=== PATIENT | female | born 1955 | race Caucasian/White ===

== ENCOUNTER 2016-11-25 12:39 | Emergency (ER) | payer MEDICAID ==
[~2016-11-25] VITALS: Ht 165.1 cm; Wt 70.5 kg
[2016-11-25 12:41] VITALS: Ht 165.1 cm; Wt 70.5 kg
[2016-11-25] MEDS ORDERED: HYDR-906 PO (13:59)
[2016-11-25] MEDS ORDERED: ACET500C5 PO (13:59)
[2016-11-25] MEDS ORDERED: HYDROCODONE/APAP (5/325) TAB PO ONE (14:00)
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
== END 2016-11-25 14:24 | disposition home or self-care (01) ==
LOC: FTE 12:39
DX: R51 Headache (principal); M54.2 Cervicalgia; M54.9 Dorsalgia, unspecified
CPT/HCPCS: Z7502; Z7610; 99283

== ENCOUNTER 2016-12-11 04:45 | Emergency (ER) | payer MEDICAID ==
[~2016-12-11] VITALS: Ht 162.6 cm; Wt 68.2 kg
[~2016-12-11 04:45] MED LIST: ACET500C5 PO; HYDR-906 PO
[2016-12-11 04:52] VITALS: Ht 162.6 cm; Wt 68.2 kg
[2016-12-11] MEDS ORDERED: ONDANSETRON 4 MG INJ IV STA (04:57)
[2016-12-11] MEDS ORDERED: HYDROmorphONE 1 MG/ML SYG IV STA (04:57)
[2016-12-11 05:00] VITALS: BP 148/94; PULSE 97; RESP 22; TEMP 98.7
[2016-12-11] MEDS ORDERED: LORAZEPAM 2 MG INJ IV ONE (05:00)
--- NOTE | 2016-12-11 05:23 | RADRPT ---
PROCEDURE: Chest. CLINICAL INDICATION: Chest pain. TECHNIQUE: Single frontal view of the chest was obtained. COMPARISON: None. FINDINGS: The cardiac silhouette is enlarged. The aortic arch is calcified. There is mild pulmonary venous c ongestion. There is no focal consolidation or pleural effusion. There is no pneumothorax. IMPRESSION: Cardiomegaly and mild pulmonary venous congestion. Aortic atherosclerosis. .Lee Rodas MD, MD Date Time Electronically viewed and signed by .Lee Rodas MD, on 12/11/2016 05:22 .T/
[2016-12-11 05:42] LABS: BASOPHIL # 0.1 10^3/ul (0.0-0.1); BASOPHILS % 0.8 % (0.0-2.0); EOSINOPHILS # 0.3 10^3/ul (0.0-0.5); EOSINOPHILS % 4.7 % (0.0-7.0); HEMATOCRIT 25.8 % (37.0-47.0); HEMOGLOBIN 8.2 g/dl (12.0-16.0); LYMPHOCYTES # 2.7 10^3/ul (0.8-2.9); LYMPHOCYTES % 45.1 % (15.0-51.0); MEAN CORPUSCULAR HEMOGLOBIN 30.8 pg (29.0-33.0); MEAN CORPUSCULAR HGB CONC 31.8 g/dl (32.0-37.0); MEAN PLATELET VOLUME 8.6 fl (7.4-10.4); MONOCYTE # 0.8 10^3/ul (0.3-0.9); MONOCYTES % 12.9 % (0.0-11.0); PLATELET COUNT 379 10^3/UL (140-415); RED BLOOD COUNT 2.66 10^6/ul (4.20-5.40); RED CELL DISTRIBUTION WIDTH 14.9 % (11.5-14.5)
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
[2016-12-11 06:10] LABS: ANION GAP 12 (8-16); BLOOD UREA NITROGEN 12 mg/dl (7-20); CALCIUM 8.8 mg/dl (8.4-10.2); CARBON DIOXIDE 24 mmol/L (21-31); CHLORIDE 112 mmol/L (97-110); CREATININE 0.71 mg/dl (0.44-1.00); GLUCOSE 94 mg/dl (70-220); POTASSIUM 3.2 mmol/L (3.5-5.1); SODIUM 145 mmol/L (135-144)
[2016-12-11 06:25] LABS: TROPONIN-I < 0.012 ng/ml (0.00-0.12)
== END 2016-12-11 07:30 | disposition home or self-care (01) ==
LOC: E/R 04:45
DX: G89.29 Other chronic pain (principal); J45.909 Unspecified asthma, uncomplicated; Z76.5 Malingerer [conscious simulation]
CPT/HCPCS: 36415; 71010; 80048; 84484; 85025; 93005; 96374; 96375; J1170; J2060; J2405; Z7502

== ENCOUNTER 2017-01-04 03:20 | Inpatient (IN) | payer MEDICAID ==
[~2017-01-04] VITALS: Ht 167.6 cm; Wt 73.7 kg
[2017-01-04] MEDS ORDERED: ONDANSETRON (ODT) 4 MG TAB ODT STA (04:00)
[2017-01-04] MEDS ORDERED: traMADol 50 MG TAB PO ONE (04:00)
[2017-01-04] MEDS ORDERED: ONDANSETRON 4 MG INJ IM STA (04:34)
[2017-01-04 04:46] LABS: BASOPHIL # 0.1 10^3/ul (0.0-0.1); BASOPHILS % 0.9 % (0.0-2.0); EOSINOPHILS % 0.5 % (0.0-7.0); HEMATOCRIT 25.3 % (37.0-47.0); HEMOGLOBIN 7.9 g/dl (12.0-16.0); LYMPHOCYTES # 2.1 10^3/ul (0.8-2.9); LYMPHOCYTES % 32.2 % (15.0-51.0); MEAN CORPUSCULAR HEMOGLOBIN 27.5 pg (29.0-33.0); MEAN CORPUSCULAR HGB CONC 31.2 g/dl (32.0-37.0); MEAN CORPUSCULAR VOLUME 88.2 fl (82.0-101.0); MEAN PLATELET VOLUME 8.5 fl (7.4-10.4); MONOCYTE # 0.5 10^3/ul (0.3-0.9); MONOCYTES % 7.6 % (0.0-11.0); NEUTROPHIL # 3.8 10^3/ul (1.6-7.5); NEUTROPHILS % 58.5 % (39.0-77.0); PLATELET COUNT 564 10^3/UL (140-415); RED BLOOD COUNT 2.87 10^6/ul (4.20-5.40); RED CELL DISTRIBUTION WIDTH 15.8 % (11.5-14.5); WHITE BLOOD COUNT 6.5 10^3/ul (4.8-10.8)
[2017-01-04] MEDS ORDERED: METOCLOPRAMIDE 10 MG INJ IV ONE (05:30)
--- NOTE | 2017-01-04 05:36 | RADRPT ---
PROCEDURE: XR Abdomen. CLINICAL INDICATION: Abdominal Pain TECHNIQUE: Portable AP supine abdomen radiographs COMPARISON: None. FINDINGS: There is suggestion of a large hiatal hernia with adjacent atelectasis. The bowel gas pattern is nor mal. There is no evidence of obstruction. There are no abnormal calcifications overlying the urinary tracts. The liver appears enlarged. There are right buttock calcified granulomas. The osseous structures are normal.. IMPRESSION: Probable large hiatal hernia. No evidence of obstruction. Enlarged liver. Physician Toño Date Time Electronically viewed and signed by Physician Toño on 01/04/2017 05:36 LUIS MANUEL/
[2017-01-04 05:48] LABS: ALBUMIN 3.8 g/dl (3.3-4.9); ALBUMIN/GLOBULIN RATIO 1.22; CALCIUM 8.7 mg/dl (8.4-10.2); CREATININE 0.7 mg/dl (0.44-1.00); POTASSIUM 4.3 mmol/L (3.5-5.1); TOTAL PROTEIN 6.9 g/dl (6.1-8.1)
[2017-01-04] MEDS ORDERED: LORAZEPAM 2 MG INJ IV ONE ×2 (06:00→08:30)
[2017-01-04] MEDS ORDERED: DIPHENHYDRAMINE 50 MG INJ ONE (06:06)
[2017-01-04] MEDS ORDERED: DIPHENHYDRAMINE 50 MG INJ IM ONE (06:30)
[2017-01-04 07:00] VITALS: TEMP 98.8
--- NOTE | 2017-01-04 07:27 | ERA ---
ER Documentation Chief Complaint Date/Time DATE: 01/04/17 TIME: 07:17 Chief Complaint chronic body pain, seen here 1 month ago, run out of [employer] HPI 61-year-old female comes in via ambulance along with her goddaughter for pain all over her body as well as 3 episodes of vomiting blood today. She admits to drinking some liquor this morning but has not had any alcohol since. She is feeling somewhat lightheaded as well. States that she ran out of [employer]. Her goddaughter describes that she had a months worth but took it all in 2 weeks has been out for a few days now. Patient states that she was taking it for pain of her whole body previously. Not a whole body pain has returned. He denies any lower GI bleeding or dark stools.Does state that she has a history of ulcers.Denies that she has specific abdominal pain worse than anything else. When asked for most of her pain and she says in her lower back. ROS All systems reviewed and are negative except as per history of present illness , however patient is unreliable I believe. Medications Home Meds No Active Prescriptions or Reported Meds Allergies Allergies: Coded Allergies: ciprofloxacin (Unverified Allergy, Severe, EYES SWELLING; ITCHING, 12/11/16 ) gabapentin (Unverified Allergy, Unknown, STROKE LIKE, 12/11/16) PMhx/Soc History of Surgery: Yes (HYSTERECTOMY) Anesthesia Reaction: No Hx Neurological Disorder: Yes (TIA 2016) Hx Respiratory Disorders: Yes (ASTHMA) Hx Cardiac Disorders: Yes (MURMUR) Hx Psychiatric Problems: No Hx Miscellaneous Medical Probl: No Hx Alcohol Use: Yes (WINE 3 X/WK) Hx Substance Use: No Hx Tobacco Use: No Smoking Status: Never smoker Physical Exam Vitals Vital Signs Date Time Temp Pulse Resp B/P Pulse Ox O2 Delivery O2 Flow Rate FiO2 01/04/17 05:44 89 20 135/84 98 Room Air 01/04/17 03:34 98.3 80 20 128/84 98 Physical Exam Const: [] Mild distress, patient whining and crying. Head: Atraumatic Eyes: Normal Conjunctiva ENT: Normal External Ears, Nose and Mouth. Neck: Full range of motion..~ No meningismus. Resp: Clear to auscultation bilaterally Cardio: Regular rate and rhythm, no murmurs Abd: Soft, No apparent tenderness, non distended. Normal bowel sounds Skin: No petechiae or rashes Back: No midline or flank tenderness Ext: No cyanosis, or edema Neur: Awake and alert and oriented 3, poor behavior, however moving all 4 extremities, able to perform finger to nose exam. Cranial nerves II through XII grossly intact. Psych: Agitated and unhappy. Result Diagram: 01/04/17 0425 01/04/17 0425 Results 24 hrs Laboratory Tests Test 01/04/17 04:25 White Blood Count 6.510^3/ul Red Blood Count 2.8710^6/ul Hemoglobin 7.9g/dl Hematocrit 25.3% Mean Corpuscular Volume 88.2fl Mean Corpuscular Hemoglobin 27.5pg Mean Corpuscular Hemoglobin Concent 31.2g/dl Red Cell Distribution Width 15.8% Platelet Count 74874^3/UL Mean Platelet Volume 8.5fl Neutrophils % 58.5% Lymphocytes % 32.2% Monocytes % 7.6% Eosinophils % 0.5% Basophils % 0.9% Nucleated Red Blood Cells % 0.0/100WBC Neutrophils # 3.810^3/ul Lymphocytes # 2.110^3/ul Monocytes # 0.510^3/ul Eosinophils # 0.010^3/ul Basophils # 0.110^3/ul Nucleated Red Blood Cells # 0.010^3/ul Sodium Level 141mmol/L Potassium Level 4.3mmol/L Chloride Level 107mmol/L Carbon Dioxide Level 22mmol/L Anion Gap 16 Blood Urea Nitrogen 11mg/dl Creatinine 0.70mg/dl Glucose Level 123mg/dl Calcium Level 8.7mg/dl Total Bilirubin 0.0mg/dl Direct Bilirubin 0.00mg/dl Indirect Bilirubin 0.0mg/dl Aspartate Amino Transf (AST/SGOT) 22IU/L Alanine Aminotransferase (ALT/SGPT) 26IU/L Alkaline Phosphatase 91IU/L Total Protein 6.9g/dl Albumin 3.8g/dl Globulin 3.10g/dl Albumin/Globulin Ratio 1.22 Lipase 83U/L Ethyl Alcohol Level 86.0mg/dl Current Medications Medications (Trade) Dose Ordered Sig/Jamshid Route PRN Reason Start Time Stop Time Status Last Admin Dose Admin Ondansetron HCl (Zofran Odt) 4 mg ONCE STAT ODT 01/04/17 04:00 01/04/17 04:35 DC Tramadol HCl (Ultram) 50 mg ONCE ONCE PO 01/04/17 04:00 01/04/17 04:01 DC 01/04/17 04:00 Ondansetron HCl (Zofran Inj) 4 mg ONCE STAT IM 01/04/17 04:34 01/04/17 04:35 DC 01/04/17 05:15 Clonidine (Catapres) 0.1 mg ONCE ONCE PO 01/04/17 05:30 01/04/17 05:32 DC 01/04/17 05:44 Metoclopramide HCl (Reglan) 10 mg ONCE ONCE IV 01/04/17 05:30 01/04/17 05:31 DC 01/04/17 05:39 Lorazepam (Ativan) 1 mg ONCE ONCE IV 01/04/17 06:00 01/04/17 06:01 DC 01/04/17 05:50 Diphenhydramine HCl (Benadryl) 25 mg ONCE ONCE IM 01/04/17 06:30 01/04/17 06:31 DC 01/04/17 06:10 Diphenhydramine HCl 50 mg 50 mg STK-MED ONCE .ROUTE 01/04/17 06:06 01/04/17 06:07 DC Sodium Chloride (NS) 1,000 ml @ 1,000 mls/hr Q1H ONCE IV 01/04/17 07:30 01/04/17 08:29 Famotidine (Pepcid Iv) 20 mg ONCE ONCE IV 01/04/17 07:30 01/04/17 07:31 Procedures/MDM Intoxicated patient with possible necrotic withdrawals as well as reported upper GI bleed. Hemoglobin of 7.9 is low however her previous hemoglobin was 8.2. Was given Pepcid IV she was unable tolerate p.o. Was also given 4 mg of Zofran and 2 mg of Reglan to help control her vomiting.She does not have any apparent abdominal tenderness and did vomit in the emergency room with no evidence of blood. Patient is behaving badly. She was given clonidine to help with the withdrawals as well as a tramadol, liter of normal saline and 1 mg of Ativan for allergic behavior. She had a cutaneous allergic reaction and was given 25 mg of IM Benadryl. Ordered a CAT scan to look for any abnormalities that would suggest why she was vomiting as possible esophageal injury. She was given Haldol so that she could start moving and tolerate the CAT scan. She is being admitted to panel hospitalist. CT scan will be followed by oncoming physician Departure Diagnosis: Primary Impression: Upper GI bleed Additional Impressions: Alcohol intoxication Vomiting Condition: Serious VALERIOSHAMALISA DO Jan 04, 2017 07:27
[2017-01-04] MEDS ORDERED: FAMOTIDINE 20 MG INJ IV ONE (07:30)
[2017-01-04] MEDS ORDERED: ACETAMINOPHEN 325 MG TAB PO PRN (07:30)
[2017-01-04] MEDS ORDERED: HALOPERIDOL 5 MG INJ IM ONE (07:30)
[2017-01-04] MEDS ORDERED: SOD CHLORIDE 0.9% 1,000 ML IV ONE (07:30)
[2017-01-04] MEDS ORDERED: ONDANSETRON 4 MG INJ IV PRN (07:30)
[2017-01-04] MEDS ORDERED: NACL 0.9% 3 ML SYG IV SCH (09:00)
[2017-01-04] MEDS ORDERED: HYDROCODONE/APAP (5/325) TAB PO PRN (09:00)
[2017-01-04] MEDS ORDERED: MULTIVITAMINS 10 ML, THIAMINE 100 MG, FOLIC ACID 1 MG, MAGNESIUM SULFATE 2 GM in SOD CH... IV ONE (09:00)
--- NOTE | 2017-01-04 09:16 | HP ---
Date/Time of Note Date/Time of Note DATE: 01/04/17 TIME: 09:04 Assessment/Plan VTE Prophylaxis VTE Prophylaxis Intervention: SCD's Lines/Catheters IV Catheter Type (from Nrsg): Peripheral IV Assessment/Plan Problems: (1) Anemia Status: Chronic Comment: Her blood counts are relatively similar to a few weeks ago when she was in the emergency room for other purposes. Will observe her carefully and check her iron levels. In addition GI has been consulted. Please note that her chief complaint of hematemesis was reported 1 not a witnessed one in the nursing notes do not indicate hematemesis. Will check a stool for occult blood Qualifiers: Anemia type: unspecified type Qualified Code: D64.9 - Anemia, unspecified type (2) Altered mental status, unspecified Status: Acute Comment: As of now I cannot do history because she has been given Ativan Benadryl and Haldol. Regardless she had some alterations in mental status but she also came in intoxicated. We will have to watch for withdrawal carefully in this young lady. Ultimately she will need further evaluation as well may need scanning if she can be gotten to the point where she will sit still for the scanner, and the scanners are operational Qualifiers: Altered mental status type: delirium Qualified Code: R41.0 - Delirium (3) Chronic pain syndrome Status: Chronic Comment: We will use methadone here. Reading between the lines and the notes it looks like at some point she has had OxyContin. I am less in favor that in the setting. (4) Alcoholism /alcohol abuse Status: Chronic Comment: Banana bag and watch for withdrawal. (5) Hepatomegaly Status: Chronic Comment: Noted. She can have formalized evaluation later. Has routine him also to check hepatitis serologies (6) Alcohol intoxication Status: Acute Comment: Noted. Supportive care Qualifiers: Complication of substance-induced condition: with delirium Qualified Code: F10.921 - Alcohol intoxication with delirium (7) Vomiting Status: Acute Comment: Whether or not she has had hematemesis will determine. GI is coming on board to consult. Qualifiers: Vomiting type: unspecified Vomiting Intractability: non-intractable Nausea presence: with nausea Qualified Code: R11.2 - Non-intractable vomiting with nausea, unspecified vomiting type HPI/ROS Admit Date/Time Admit Date/Time January 04, 2017 Hx of Present Illness 61-year-old single female being admitted from the emergency room. According to the information that is obtainable she had recently moved from [facility] to [facility] in the last 6 months. She has not established with a regular doctor. She has been coming to the emergency room with frequent complaints about chronic pain. She presented this time with reported hematemesis. Please note the nurses notes in the computer record from today indicate that she did have emesis several times but with no blood or coffee grounds. She was intoxicated with a blood alcohol level of 86. She also has opiates on board. Because the patient was agitated and yelling she was given Ativan and Benadryl and Haldol. At that time was when I came to see the patient she is so sedated that there is no way to get a medical history. Attempts to get CT scans ordered from the emergency room were unsuccessful and now all of the scanners are down "indefinitely" ROS Subjective hx not possible: pt non-verbal PMH/Family/Social Past Medical History 1) alcoholism 2) chronic pain syndrome 3) chronic opioid usage 4) hepatomegaly 5 ) reported history of postherpetic neuralgia 6) reported history of cardiac murmur type unknown 7) reported history of TIA in 2016??? 8) possible history of asthma Past Surgical History 1) RAJEEV Family History Significant Family History: no pertinent family hx Social History Alcohol Use: heavy Smoking Status: Never smoker Drug Use: other (Prescription opiates) Exam/Review of Systems Vital Signs Vitals Vital Signs Date Time Temp Pulse Resp B/P Pulse Ox O2 Delivery O2 Flow Rate FiO2 01/04/17 09:02 110 27 137/80 99 Room Air 01/04/17 07:00 98.8 Exam Exam Older female in 4 point restraints sedated occasionally starts thrashing around will not give meaningful history Constitutional: non-verbal Psych: other (Unable to determine) Head: atraumatic, normocephalic Eyes: EOMI, PERRL, nl conjunctiva, nl lids, nl sclera ENMT: mucosa pink and moist, nl external ears & nose, nl nasal mucosa & septum , other (Dentition in fair repair) Neck: non-tender, other (No nodes no thyromegaly), supple Respiratory: clear to auscultation, normal air movement Cardiovascular: murmurs/extra sounds (Left upper sternal border murmur), nl pulses, other (PMI is laterally displaced), regular rate and rhythm Gastrointestinal: nl liver, spleen, non-tender, soft Genitourinary - Female: nl adnexae, nl external genitalia Musculoskeletal: other (Patient is thrashing around I am unable to determine however on her left thigh appears that she has had some type of muscular disruption of the posterior aspect) Extremities: normal pulses Neurological: confused (Post IV sedative), other (Moves all extremities) Labs Result Diagram: 01/04/1742401/04/17424 Medications Medications Current Medications Multivitamins/ Thiamine HCl/ Folic Acid/ Magnesium Sulfate/ Sodium Chloride ( Mvi Adult/ Vitamin B1/Folic Acid/Magnesium Sulfate/NS) 1,015.2 ml @ 500 mls/ hr Q2H2M ONCE IV ; Start 01/04/17 at 09:00; Stop 01/04/17 at 11:01 LISA PATRICK MD Jan 04, 2017 09:16
[2017-01-04 09:30] VITALS: Ht 167.6 cm; Wt 73.7 kg
[2017-01-04 09:53] LABS: IRON 14 ug/dl (35-150)
[2017-01-04 10:02] LABS: TOTAL IRON BINDING CAPACITY 393 ug/dl (241-421)
[2017-01-04 10:21] LABS: THYROID STIMULATING HORMONE 6.95 MIU/L (0.465-4.680)
[2017-01-04 10:25] LABS: FERRITIN 6.1 ng/ml (11.1-264.0)
[2017-01-04 10:36] VITALS: BP 147/76; RESP 19
[2017-01-04] MEDS: FAMOTIDINE 20 MG INJ IV SCH ×2 (12:17→21:13)
[2017-01-04 15:47] VITALS: BP 114/64; RESP 18
[2017-01-04 19:39] VITALS: BP 136/78; RESP 18
[2017-01-04] MEDS: ONDANSETRON 4 MG INJ IV PRN (23:49)
[2017-01-05] VITALS (13 sets, daily range): BP systolic 117–158; BP diastolic 62–83; PULSE 84–94; RESP 16–27
--- NOTE | 2017-01-05 01:08 | RADRPT ---
PROCEDURE: CT Abdomen and Pelvis without contrast. CLINICAL INDICATION: Hematemesis TECHNIQUE: CT scan of the abdomen and pelvis without contrast was performed on a multidetector hig h-resolution CT scanner. The patient was scanned without intravenous contrast. Coronal and sagittal reformatted images were obtained from the axial source images. Images were reviewed on a high-resol [employer] PACS workstation. The total exam CTDI equals 13.56 mGy and the total exam DLP equals 754.9 mGy -cm. One or more the following dose reduction techniques were utilized: Automated exposure control, adjus tment of the mA and / or kV according to patient's size, or use of iterative reconstruction techniqu e. COMPARISON: Abdominal radiograph of 01/04/2017 FINDINGS: Minimal linear atelectasis/fibrosis at lung bases. No pneumoperitoneum is seen. The length of the li rishi equals 18.6 cm consistent with hepatomegaly. No abnormality seen in the gallbladder. Coronary ar [place] calcification. Moderate hiatal hernia. No abnormality seen in the spleen, pancreas, adrenals or kidneys. Tortuosity of distal thoracic aorta. No abdominal aortic aneurysm is seen. Small umbilical hernia containing fat only. No biliary dilatation is seen. No ascites is seen. The patient appears to be status post hysterectomy. No abnormality seen in the bladder. Dystrophic calcifications in sub cutaneous fat bilateral gluteal regions. Diverticula in the sigmoid colon. There is no specific evid ence of acute diverticulitis seen. There is no evidence of acute appendicitis. No significantly dila estela small bowel loops are seen. No enlarged lymph nodes are seen in the abdomen or pelvis. Degenerat sujit changes in thoracolumbar spine. Appearance of fusion apparent T9-T11 vertebral bodies. Compression fracture apparent T8 vertebral body with a large Schmorl's node superiorly. IMPRESSION: Hepatomegaly. Moderate hiatal hernia. The hiatal hernia and stomach are not distended. Coronary maría ry calcification. Please see above. RPTAT: HJES .Roberto Gan MD, Date Time Electronically viewed and signed by .Roberto Gan MD, on 01/05/2017 01:08 .S/
[2017-01-05] MEDS ORDERED: PRAM0.2539 PO (02:21)
[2017-01-05] MEDS: ALBUTEROL/IPRATROPIUM (NEB) 3 ML AMP HHN PRN ×4 (02:30→21:18)
[2017-01-05 06:06] LABS: BASOPHILS % 0.5 % (0.0-2.0); EOSINOPHILS # 0.1 10^3/ul (0.0-0.5); EOSINOPHILS % 1.4 % (0.0-7.0); HEMATOCRIT 23.4 % (37.0-47.0); HEMOGLOBIN 7.2 g/dl (12.0-16.0); LYMPHOCYTES # 2.1 10^3/ul (0.8-2.9); LYMPHOCYTES % 35.7 % (15.0-51.0); MEAN CORPUSCULAR HEMOGLOBIN 28.6 pg (29.0-33.0); MEAN CORPUSCULAR HGB CONC 30.8 g/dl (32.0-37.0); MEAN CORPUSCULAR VOLUME 92.9 fl (82.0-101.0); MEAN PLATELET VOLUME 8.6 fl (7.4-10.4); MONOCYTE # 0.7 10^3/ul (0.3-0.9); MONOCYTES % 11.6 % (0.0-11.0); NEUTROPHILS % 50.5 % (39.0-77.0); PLATELET COUNT 441 10^3/UL (140-415); RED BLOOD COUNT 2.52 10^6/ul (4.20-5.40); RED CELL DISTRIBUTION WIDTH 15.9 % (11.5-14.5); WHITE BLOOD COUNT 5.9 10^3/ul (4.8-10.8)
[2017-01-05 06:22] LABS: ALBUMIN 2.8 g/dl (3.3-4.9); ALBUMIN/GLOBULIN RATIO 1.07; BILIRUBIN,INDIRECT 0.2 mg/dl (0-1.1); BILIRUBIN,TOTAL 0.2 mg/dl (0.2-1.3); CALCIUM 8.3 mg/dl (8.4-10.2); CREATININE 0.68 mg/dl (0.44-1.00); POTASSIUM 3.7 mmol/L (3.5-5.1); TOTAL PROTEIN 5.4 g/dl (6.1-8.1)
[2017-01-05] MEDS: HYDROCODONE/APAP (5/325) TAB PO PRN ×3 (07:01→19:48)
[2017-01-05] MEDS: FAMOTIDINE 20 MG INJ IV SCH (08:15)
[2017-01-05] MEDS: METHADONE 5 MG TAB PO SCH ×2 (08:15→23:08)
[2017-01-05] MEDS: PRAMIPEXOLE 0.25 MG TAB PO SCH ×2 (08:15→21:33)
[2017-01-05] MEDS: SOD FERRIC GLUC COMPLX 125 MG in SOD CHLORIDE 0.9% 100 ML IVPB SCH (08:26)
[2017-01-05] MEDS: MULTIVITAMINS 10 ML, THIAMINE 100 MG, FOLIC ACID 1 MG in SOD CHLORIDE 0.9% 1,000 ML IVPB SCH (08:59)
[2017-01-05 09:13] LABS: ADD UMIC YES; UR ASCORBIC ACID 40 mg/dL (NEGATIVE); UR BILIRUBIN (Dip) NEGATIVE (NEGATIVE); UR BLOOD (Dip) NEGATIVE (NEGATIVE); UR CLARITY CLEAR (CLEAR); UR COLOR YELLOW (YELLOW); UR GLUCOSE (Dip) NEGATIVE (NEGATIVE); UR KETONES (Dip) TRACE mg/dL (NEGATIVE); UR LEUKOCYTE ESTERASE (Dip) 1+ Leu/ul (NEGATIVE); UR NITRITE (Dip) NEGATIVE (NEGATIVE); UR NONSQUAMOUS EPITHELIAL CELL 2 /HPF (NONE SEEN); UR RBC 1 /HPF (0-5); UR SPECIFIC GRAVITY (Dip) 1.024 (1.003-1.030); UR SQUAMOUS EPITHELIAL CELL FEW /HPF (FEW); UR TOTAL PROTEIN (Dip) NEGATIVE (NEGATIVE); UR UROBILINOGEN (Dip) 2+ mg/dL (NEGATIVE)
[2017-01-05 09:57] LABS: BARBITURATES Negative (NEGATIVE); BENZODIAZEPINES Negative (NEGATIVE); CANNABINOIDS Negative (NEGATIVE); COCAINE Negative (NEGATIVE); OPIATES Positive (NEGATIVE)
[2017-01-05] MEDS: LORAZEPAM 2 MG INJ IV PRN (11:46)
[2017-01-05] MEDS: GUAIFENESIN/CODEINE 5ML CUP PO PRN ×2 (12:45→21:32)
--- NOTE | 2017-01-05 15:03 | RADRPT ---
PROCEDURE: XR Chest. CLINICAL INDICATION: Fracture TECHNIQUE: AP view of the chest was performed. COMPARISON: 12/11/2016 FINDINGS: The lungs are clear. The lung volumes are normal. The heart size is normal. Chronic left sided rib fractures are present. There is hyperdensity within the right shoulder joint, which may be represen tative of calcifications. Aortic atherosclerosis is present. IMPRESSION: 1. No radiographic evidence for acute cardiopulmonary disease. 2. Old left-sided rib fractures are present. 3. Hyperdensity within the left shoulder may represent calcification, was present on prior exam of [facility] 2016. Dedicated radiographs of the shoulder may be performed for further evaluation. 4. Aortic atherosclerosis is present. RPTAT: QQ .Ruma Zepeda MD, Date Time Electronically viewed and signed by .Ruma Zepeda MD, on 01/05/2017 15:03 .M/
--- NOTE | 2017-01-05 15:27 | PN ---
Date/Time of Note Date/Time of Note DATE: 01/05/17 TIME: 15:26 Assessment/Plan VTE Prophylaxis VTE Prophylaxis Intervention: SCD's Lines/Catheters IV Catheter Type (from Nrs): Peripheral IV Urinary Cath still in place: No Assessment/Plan Chief Complaint/Hosp Course Assessment and plan 1. Alcohol intoxication has been placed on banana bag Ativan as needed, Librium schedule 2. Acute on chronic GI bleed Secondary to history of alcoholism versus NSAID intake GI has been consulted, plan for upper endoscopy today Continue PPI 3. Right shoulder pain Obtain x-ray of the right shoulder, pain meds 4. Chronic pain syndrome Continue methadone 5. Anemia, secondary to GI bleed Continue to monitor, transfuse his hemoglobin is less than 7.0 Placed the patient on ferrous sulfate Problems: Subjective 24 Hr Interval Summary Free Text/Dictation She continues to complain of having generalized body ache, right shoulder pain and abdominal pain N.p.o. secondary to GI bleed and upcoming procedure Exam/Review of Systems Vital Signs Vitals Vital Signs Date Time Temp Pulse Resp B/P Pulse Ox O2 Delivery O2 Flow Rate FiO2 01/05/17 14:25 99.7 91 18 139/76 100 01/05/17 11:32 21 01/04/17 09:02 Room Air Intake and Output 01/04/17 01/04/17 01/05/17 15:00 23:00 07:00 Intake Total 2015.2 ml Balance 2015.2 ml Exam General: The patient is well-developed, Not in acute distress. HEENT: Atraumatic, normocephalic. The pupils are equal and round . Neck: Supple with full range of motion. Chest: Normal expansion of the thorax during inspiration Lungs: Clear to auscultation bilaterally Heart: Normal S1-S2, Regular rhythm and rate. Abdomen: Soft , epigastric tenderness , nondistended , bowel sounds are present. Extremities: Right shoulder deformity, no edema no cyanosis Neurologic: Normal mental status,The patient is awake, alert and oriented . Results Result Diagram: 01/05/17 0530 01/05/17 0530 Results 24 hrs Laboratory Tests Test 01/05/17 05:30 01/05/17 06:50 White Blood Count 5.9 Red Blood Count 2.52 L Hemoglobin 7.2 L Hematocrit 23.4 L Mean Corpuscular Volume 92.9 Mean Corpuscular Hemoglobin 28.6 L Mean Corpuscular Hemoglobin Concent 30.8 L Red Cell Distribution Width 15.9 H Platelet Count 441 #H Mean Platelet Volume 8.6 Neutrophils % 50.5 Lymphocytes % 35.7 Monocytes % 11.6 H Eosinophils % 1.4 Basophils % 0.5 Nucleated Red Blood Cells % 0.0 Neutrophils # 3.0 Lymphocytes # 2.1 Monocytes # 0.7 Eosinophils # 0.1 Basophils # 0.0 Nucleated Red Blood Cells # 0.0 Sodium Level 139 Potassium Level 3.7 Chloride Level 112 H Carbon Dioxide Level 23 Anion Gap 8 # Blood Urea Nitrogen 12 Creatinine 0.68 Glucose Level 87 Calcium Level 8.3 L Total Bilirubin 0.2 Direct Bilirubin 0.00 Indirect Bilirubin 0.2 Aspartate Amino Transf (AST/SGOT) 21 Alanine Aminotransferase (ALT/SGPT) 23 Alkaline Phosphatase 81 Total Protein 5.4 #L Albumin 2.8 #L Globulin 2.60 Albumin/Globulin Ratio 1.07 Urine Color YELLOW Urine Clarity CLEAR Urine pH 6.0 Urine Specific [place] 1.024 Urine Ketones TRACE A Urine Nitrite NEGATIVE Urine Bilirubin NEGATIVE Urine Urobilinogen 2+ H Urine Leukocyte Esterase 1+ H Urine Microscopic RBC 1 Urine Microscopic WBC 10 H Urine Squamous Epithelial Cells FEW Urine Hemoglobin NEGATIVE Urine Glucose NEGATIVE Urine Total Protein NEGATIVE Urine Opiates Screen Positive Urine Barbiturates Negative Urine Amphetamines Screen Negative Urine Benzodiazepines Screen Negative Urine Cocaine Screen Negative Urine Cannabinoids Negative Medications Medications Current Medications Lorazepam (Ativan) 0.5 mg Q6H PRN IV ANXIETY Last administered on 01/05/17 11: 46; Admin Dose 0.5 MG; Start 01/04/17 at 09:00 Ondansetron HCl (Zofran Inj) 4 mg Q6H PRN IV NAUSEA AND/OR VOMITING Last administered on 01/04/17 23:49; Admin Dose 4 MG; Start 01/04/17 at 09:00 Acetaminophen/ Hydrocodone Bitart ([place] (5/325)) 1 tab Q6H PRN PO PAIN LEVEL 4 -6 Last administered on 01/05/17 01:18; Admin Dose 1 TAB; Start 01/04/17 at 09: 00 Acetaminophen/ Hydrocodone Bitart ([place] (5/325)) 2 tab Q6H PRN PO PAIN LEVEL 7 -10 Last administered on 01/05/17 13:56; Admin Dose 2 TAB; Start 01/04/17 at 09 :00 Famotidine (Pepcid Iv) 20 mg Q12 IV Last administered on 01/05/17 08:15; Admin Dose 20 MG; Start 01/04/17 at 09:00 Methadone HCl 5 mg 5 mg BID PO Last administered on 01/05/17 08:15; Admin Dose 5 MG; Start 01/05/17 at 09:00 Multivitamins/ Thiamine HCl/ Folic Acid/Sodium Chloride (Mvi Adult/ Vitamin B1/ Folic Acid/NS) 1,011.2 ml @ 125 mls/ hr DAILY@09 IVPB Last administered on 08:59; Admin Dose 125 MLS/HR; Start 01/05/17 at 09:00 Pramipexole 0.25 mg 0.25 mg BID PO Last administered on 01/05/17 08:15; Admin Dose 0.25 MG; Start 01/05/17 at 09:00 Ferric Sodium Gluconate Complex/ Sodium Chloride (Ferrlecit/NS) 110 ml @ 110 mls/hr Q24H IVPB Last administered on 01/05/17 08:26; Admin Dose 110 MLS/HR; Start 01/05/17 at 08:00; Stop 01/09/17 at 08:59 Guaifenesin/ Codeine Phosphate (Robitussin Ac Liquid Cup) 5 ml Q4H PRN PO COUGH Last administered on 01/05/17 12:45; Admin Dose 5 ML; Start 01/05/17 at 12:30 LILLIE STEINBERG MD Jan 05, 2017 15:27
[2017-01-05 16:55] LABS: HEMATOCRIT 24.9 % (37.0-47.0); HEMOGLOBIN 7.6 g/dl (12.0-16.0)
[2017-01-05] MEDS ORDERED: PROPOFOL 40 ML ONE (18:20)
[2017-01-05] MEDS ORDERED: LIDOCAINE 2% (SDV) 5 ML INJ ONE (18:20)
--- NOTE | 2017-01-05 18:37 | OPPN ---
Date/Time of Note Date/Time of Note DATE: 01/05/17 TIME: 18:32 Proc Note GI Procedure Date 01/05/17 Pre-procedure Diagnosis * Hematemesis Post-procedure Diagnosis Assessment: * Distal esophagitis * Moderate-sized hiatal hernia * Multiple antral gastric ulcerations, benign endoscopic appearance, no stigmata * Rule out H. pylori infection. Biopsies obtained Plan: * Protonix 40 mg twice daily * Avoid NSAIDs and alcohol * Advance diet as tolerated * Monitor H&H and transfuse for hemoglobin less than 7.5 Procedure Performed: Endoscopy (Biopsies) Surgeon see signature line Bolt Threader none Anesthesia Type: MAC Anesthesiologist: KENTON WATERMAN none Transfusion required none Biopsy 1: Gastric body and antrum Grafts/Implants none Complication(s) none Pt Condition post procedure: stable Disposition: PACU Indications: other (Hematemesis) Procedure Description After informed consent, with the patient/relatives understanding the procedure, its indications, potential risks and complications, including but not limited to : allergic reaction, bleeding, perforation or infection, and after all pertinent questions were answered to the patients satisfaction, the patient/ relatives signed witnessed informed consent. Following this, premedication was administered slowly IV push under careful cardiovascular and respiratory monitoring with pulse oximetry, automatic blood pressure, and night monitor. Once the sedative effect was achieved the patient was place in the left lateral decubitus, the panendoscope was introduced and advanced under visual control. Careful examination of the upper gastrointestinal tract, both on insertion as well as withdrawal of the instrument disclosing the following findings: ESOPHAGUS: the mucosa of the entire esophagus was carefully examined and showed the following findings: There is moderate erythema of the mucosa of the distal esophagus. Otherwise the mucosa appears within normal limits. There is no evidence of varices, neoplasm, or stricture. Moderate size hiatal hernia identified. STOMACH: Upon entrance to the stomach air was insufflated, the gastric green distended normally. The mucosa of the fundus, body and antrum of the stomach was carefully examined both head-on and on retroflexion, and showed the following findings: There are multiple small, clean based antral ulcers. No stigmata. Biopsied to r/ o H pylori. Otherwise the mucosa appears within normal limits with no abnormalities. There is no evidence of neoplasm. PYLORUS: The pylorus was carefully examined and showed the following findings: the pylorus appears patent and within normal limits, with no evidence of gastric outlet obstruction. DUODENUM: The duodenal mucosa was carefully examined in the duodenal bulb as well as the second portion of the duodenum and showed the following findings: the mucosa appears unremarkable with no evidence of duodenitis, ulcer or neoplasm. Copies To: CC: JOHN LUA MD, MORDO MD Jan 05, 2017 18:37
--- NOTE | 2017-01-05 18:45 | CONS ---
Date/Time of Note Date/Time of Note DATE: 01/05/17 TIME: 18:38 Assessment/Plan Assessment/Plan Additional Assessment/Plan Assessment: * Hematemesis * Rule out PUD/GERD/varices * Moderate anemia * Chronic pain syndrome * Opiate dependency * Alcohol abuse Plan: * Monitor for further bleeding and transfuse for hemoglobin less than 7.5 * Proceed with EGD, patient informed procedure including risks, benefits and alternatives. Agreeable to proceed * PPI therapy * Further recommendation will depend on findings Consultation Date/Type/Reason Admit Date/Time January 04, 2017 Date of Consultation: Jan 05, 2017 Type of Consultation: GI Reason for Consultation Hematemesis Hx of Present Illness 61-year-old female with history of chronic pain hospitalized complaining of hematemesis. The patient was alcohol intoxicated and had opiates and barbiturates in her system on toxicology screen. Patient does have chronic pain issues and is medicated for this, there is however no identifiable physician prescribing her pain medications and apparently she has been obtaining care in the emergency room's in the area. From the GI point of view of the patient experienced hematemesis and what she describes as moderate amounts, there is no melena, hematochezia. At this point we will evaluate with esophagogastroduodenoscopy and further recommendations pending patient's clinical course and findings on endoscopy Constitutional: improved, no complaints Eyes: no complaints ENT: no complaints Respiratory: no complaints Cardiovascular: no complaints Gastrointestinal: other (See HPI) Genitourinary: no complaints Musculoskeletal: other (Chronic pain, particularly shoulder) Skin: no complaints Neurologic: no complaints Endocrine: no complaints Lymphatic: no complaints Psychological: other (Unable to determine) Immunologic: no complaints Past Medical History Chronic pain Opiate dependency Alcohol abuse Past Surgical History Past Surgical Hx: other (Orthopedic surgery) Family History Significant Family History: no pertinent family hx Social History Alcohol Use: heavy Smoking Status: Never smoker Drug Use: other (Prescription opiates) Exam/Review of Systems Vital Signs Vitals Vital Signs Date Time Temp Pulse Resp B/P Pulse Ox O2 Delivery O2 Flow Rate FiO2 01/05/17 14:25 99.7 91 18 139/76 100 01/05/17 11:32 21 01/04/17 09:02 Room Air Intake and Output 01/04/17 01/04/17 01/05/17 15:00 23:00 07:00 Intake Total 2015.2 ml Balance 2015.2 ml Exam PHYSICAL EXAMINATION: GENERAL: Well developed, well nourished, alert & oriented x 3, in no acute distress SKIN: No lesions, no stigmata chronic liver disease, no evidence of bleeding diathesis LYMPHATIC: No palpable lymphadenopathy. HEAD: Normocephalic, atraumatic, no tenderness. EYES: Pupils equal reactive to light and accommodation, full extraocular movements, sclera clear, non-icteric, no discharge. EARS/NOSE AND THROAT: Ears normal, nose normal, oropharynx normal, oral membranes well hydrated without lesions. NECK: Supple, no masses, thyroid normal, JVP within normal limits, carotids normal without bruits. CHEST: Inspection within normal limits, breasts grossly normal. CARDIOVASCULAR: Heart: Regular rate and rhythm, no murmurs, gallops or rubs. Peripheral pulses present within normal limits, no cyanosis, clubbing or edemas. No pulsatile abdominal mass RESPIRATORY: Lungs clear to auscultation and percussion, no wheezing, no rubs GASTROINTESTINAL AND LIVER: Abdomen: Soft, moderate epigastric tenderness, non- distended, no hernias, no masses, no organomegaly, no ascites, no guarding, no rebound tenderness, normoactive bowel sounds. Rectal: Deferred. GENITOURINARY: [Female genitalia within normal limits.] Results Result Diagram: 01/05/17 1647 01/05/17 0530 Results 24 hrs Laboratory Tests Test 01/05/17 05:30 01/05/17 06:50 01/05/17 16:47 White Blood Count 5.9 Red Blood Count 2.52 L Hemoglobin 7.2 L 7.6 L Hematocrit 23.4 L 24.9 L Mean Corpuscular Volume 92.9 Mean Corpuscular Hemoglobin 28.6 L Mean Corpuscular Hemoglobin Concent 30.8 L Red Cell Distribution Width 15.9 H Platelet Count 441 #H Mean Platelet Volume 8.6 Neutrophils % 50.5 Lymphocytes % 35.7 Monocytes % 11.6 H Eosinophils % 1.4 Basophils % 0.5 Nucleated Red Blood Cells % 0.0 Neutrophils # 3.0 Lymphocytes # 2.1 Monocytes # 0.7 Eosinophils # 0.1 Basophils # 0.0 Nucleated Red Blood Cells # 0.0 Sodium Level 139 Potassium Level 3.7 Chloride Level 112 H Carbon Dioxide Level 23 Anion Gap 8 # Blood Urea Nitrogen 12 Creatinine 0.68 Glucose Level 87 Calcium Level 8.3 L Total Bilirubin 0.2 Direct Bilirubin 0.00 Indirect Bilirubin 0.2 Aspartate Amino Transf (AST/SGOT) 21 Alanine Aminotransferase (ALT/SGPT) 23 Alkaline Phosphatase 81 Total Protein 5.4 #L Albumin 2.8 #L Globulin 2.60 Albumin/Globulin Ratio 1.07 Urine Color YELLOW Urine Clarity CLEAR Urine pH 6.0 Urine Specific [place] 1.024 Urine Ketones TRACE A Urine Nitrite NEGATIVE Urine Bilirubin NEGATIVE Urine Urobilinogen 2+ H Urine Leukocyte Esterase 1+ H Urine Microscopic RBC 1 Urine Microscopic WBC 10 H Urine Squamous Epithelial Cells FEW Urine Hemoglobin NEGATIVE Urine Glucose NEGATIVE Urine Total Protein NEGATIVE Urine Opiates Screen Positive Urine Barbiturates Negative Urine Amphetamines Screen Negative Urine Benzodiazepines Screen Negative Urine Cocaine Screen Negative Urine Cannabinoids Negative Medications Medications Current Medications Lorazepam (Ativan) 0.5 mg Q6H PRN IV ANXIETY Last administered on 01/05/17 11: 46; Admin Dose 0.5 MG; Start 01/04/17 at 09:00 Ondansetron HCl (Zofran Inj) 4 mg Q6H PRN IV NAUSEA AND/OR VOMITING Last administered on 01/04/17 23:49; Admin Dose 4 MG; Start 01/04/17 at 09:00 Acetaminophen/ Hydrocodone Bitart ([place] (5/325)) 1 tab Q6H PRN PO PAIN LEVEL 4 -6 Last administered on 01/05/17 01:18; Admin Dose 1 TAB; Start 01/04/17 at 09: 00 Acetaminophen/ Hydrocodone Bitart ([place] (5/325)) 2 tab Q6H PRN PO PAIN LEVEL 7 -10 Last administered on 01/05/17 13:56; Admin Dose 2 TAB; Start 01/04/17 at 09 :00 Famotidine (Pepcid Iv) 20 mg Q12 IV Last administered on 01/05/17 08:15; Admin Dose 20 MG; Start 01/04/17 at 09:00 Methadone HCl 5 mg 5 mg BID PO Last administered on 01/05/17 08:15; Admin Dose 5 MG; Start 01/05/17 at 09:00 Multivitamins/ Thiamine HCl/ Folic Acid/Sodium Chloride (Mvi Adult/ Vitamin B1/ Folic Acid/NS) 1,011.2 ml @ 125 mls/ hr DAILY@09 IVPB Last administered on 08:59; Admin Dose 125 MLS/HR; Start 01/05/17 at 09:00 Pramipexole 0.25 mg 0.25 mg BID PO Last administered on 01/05/17 08:15; Admin Dose 0.25 MG; Start 01/05/17 at 09:00 Ferric Sodium Gluconate Complex/ Sodium Chloride (Ferrlecit/NS) 110 ml @ 110 mls/hr Q24H IVPB Last administered on 01/05/17 08:26; Admin Dose 110 MLS/HR; Start 01/05/17 at 08:00; Stop 01/09/17 at 08:59 Guaifenesin/ Codeine Phosphate (Robitussin Ac Liquid Cup) 5 ml Q4H PRN PO COUGH Last administered on 01/05/17 12:45; Admin Dose 5 ML; Start 01/05/17 at 12:30 Ferrous Sulfate (Ferrous Sulfate (Ec)) 325 mg BID PO ; Start 01/05/17 at 21:00 Ascorbic Acid (Vitamin C) 250 mg BID PO ; Start 01/05/17 at 21:00 JOHN LUA MD Jan 05, 2017 18:45
[2017-01-05] MEDS ORDERED: ATROPINE 0.4 MG IV PRN (19:30)
[2017-01-05] MEDS ORDERED: FENTAnyl 25 MCG IV PRN (19:30)
[2017-01-05] MEDS ORDERED: hydrALAzine 5 MG IV PRN (19:30)
[2017-01-05] MEDS ORDERED: ONDANSETRON 4 MG INJ IV PRN (19:30)
[2017-01-05] MEDS ORDERED: LABETALOL 5 MG IV PRN (19:30)
[2017-01-05] MEDS ORDERED: EPHEDRINE SULFATE 5 MG IV PRN (19:30)
[2017-01-05 21:30] LABS: HEMATOCRIT 22.9 % (37.0-47.0); HEMOGLOBIN 7.1 g/dl (12.0-16.0)
[2017-01-05] MEDS: ASCORBIC ACID 250 MG TAB PO SCH (21:32)
[2017-01-05] MEDS: FERROUS SULFATE (EC) 325 MG TAB PO SCH (21:32)
[2017-01-06] MEDS: LORAZEPAM 2 MG INJ IV PRN ×3 (00:33→16:11)
[2017-01-06 02:11] VITALS: BP 111/56; RESP 20
[2017-01-06] MEDS: HYDROCODONE/APAP (5/325) TAB PO PRN ×3 (03:05→17:42)
[2017-01-06] MEDS: GUAIFENESIN/CODEINE 5ML CUP PO PRN ×3 (03:59→21:01)
[2017-01-06 06:24] LABS: ABNORMAL IP MESSAGE 1; BASOPHILS % 0.3 % (0.0-2.0); EOSINOPHILS # 0.4 10^3/ul (0.0-0.5); HEMATOCRIT 22.6 % (37.0-47.0); LYMPHOCYTES # 2.4 10^3/ul (0.8-2.9); LYMPHOCYTES % 40.8 % (15.0-51.0); MEAN CORPUSCULAR HEMOGLOBIN 28.5 pg (29.0-33.0); MEAN CORPUSCULAR HGB CONC 30.5 g/dl (32.0-37.0); MEAN CORPUSCULAR VOLUME 93.4 fl (82.0-101.0); MEAN PLATELET VOLUME 8.7 fl (7.4-10.4); MONOCYTE # 0.8 10^3/ul (0.3-0.9); MONOCYTES % 13.2 % (0.0-11.0); NEUTROPHIL # 2.3 10^3/ul (1.6-7.5); NEUTROPHILS % 38.4 % (39.0-77.0); PLATELET COUNT 424 10^3/UL (140-415); RED BLOOD COUNT 2.42 10^6/ul (4.20-5.40); RED CELL DISTRIBUTION WIDTH 15.9 % (11.5-14.5)
[2017-01-06] MEDS: PANTOPRAZOLE (EC) 40 MG TAB PO SCH ×2 (06:34→17:41)
[2017-01-06 06:41] LABS: POSITIVE DIFF @See below
[2017-01-06 06:44] LABS: HEMOGLOBIN 6.9 g/dl (12.0-16.0); PATH REVIEW? YES
[2017-01-06 07:15] LABS: CALCIUM 8.4 mg/dl (8.4-10.2); CREATININE 0.69 mg/dl (0.44-1.00)
[2017-01-06 07:19] VITALS: BP 157/70; RESP 18
[2017-01-06 07:29] LABS: FREE T3 4.1 pg/ml (2.77-5.27)
[2017-01-06] MEDS: FERROUS SULFATE (EC) 325 MG TAB PO SCH ×2 (08:28→21:02)
[2017-01-06] MEDS: METHADONE 5 MG TAB PO SCH ×2 (08:28→21:02)
[2017-01-06] MEDS: PRAMIPEXOLE 0.25 MG TAB PO SCH ×2 (08:28→21:01)
[2017-01-06] MEDS: SOD FERRIC GLUC COMPLX 125 MG in SOD CHLORIDE 0.9% 100 ML IVPB SCH (08:29)
[2017-01-06] MEDS: ASCORBIC ACID 250 MG TAB PO SCH ×2 (08:29→21:01)
[2017-01-06] MEDS: MULTIVITAMINS 10 ML, THIAMINE 100 MG, FOLIC ACID 1 MG in SOD CHLORIDE 0.9% 1,000 ML IVPB SCH (08:32)
--- NOTE | 2017-01-06 09:09 | RADRPT ---
PROCEDURE: XR Shoulder. CLINICAL INDICATION: Right shoulder pain. Dislocation. TECHNIQUE: 3 views of the right shoulder are available for review. COMPARISON: None available FINDINGS: There is anterior dislocation or subluxation of the right glenohumeral joint. There is no significan t inferior component. The acromioclavicular joint is not well evaluated on this study but appears gr ossly intact. No obvious fracture is seen. Extensive scattered calcifications are present which may be within the scanned. The visualized right chest wall is intact. IMPRESSION: 1. Anterior dislocation or subluxation of the right glenohumeral joint without definitive inferior displacement. Consider CT scan for further evaluation. 2. Scattered nonspecific calcifications which may be within the subcutaneous tissues. . RPTAT: KK .Tim Cassidy MD, Date Time Electronically viewed and signed by .Tim Cassidy MD, MD on 01/06/2017 08:53 .B/
[2017-01-06 09:22] LABS: ANISOCYTOSIS 1+ (0-0); BASOPHILS % (M) 2 % (0-2); EOSINOPHILS % (M) 7 % (0-7); HYPOCHROMASIA 3+ (0-0); MICROCYTOSIS 1+ (0-0); MONOCYTES % (M) 7 % (0-11); PLATELET ESTIMATE NORMAL; POLYCHROMASIA 3+ (0-0)
[2017-01-06 12:58] VITALS: BP 104/64; RESP 20
--- NOTE | 2017-01-06 14:10 | PN ---
Date/Time of Note Date/Time of Note DATE: 01/06/17 TIME: 14:01 Assessment/Plan VTE Prophylaxis VTE Prophylaxis Intervention: SCD's Lines/Catheters IV Catheter Type (from Nrs): Peripheral IV Urinary Cath still in place: No Assessment/Plan Chief Complaint/Hosp Course Assessment and plan 1. Alcohol intoxication Is supposed banana bag Ativan as needed, Librium schedule 2. Acute on chronic GI bleed Secondary to history of alcoholism versus NSAID intake Status post upper endoscopy on 01/05/2017 with finding of gastric ulcer without any active bleeding Continue PPI 3. Right shoulder pain secondary to Anterior dislocation or subluxation of the right glenohumeral joint without definitive inferior displacement Status post fall 2 weeks ago Orthopedic surgeon has been consulted, pain meds Prelim discussion with orthopedic surgeon no surgical intervention recommended at this time 4. Chronic pain syndrome Continue methadone 5. Anemia, secondary to GI bleed Status post transfusion of 1 unit of packed red blood cell Continue to monitor, transfuse his hemoglobin is less than 7.5 Continue ferrous sulfate Plan to discharge home tomorrow if no surgical intervention indicated as per orthopedic surgeon Problems: Subjective 24 Hr Interval Summary Free Text/Dictation Status post EGD on 01/05/2017 Patient continues to complain of having abdominal pain Patient continues to complain of generalized body ache Exam/Review of Systems Vital Signs Vitals Vital Signs Date Time Temp Pulse Resp B/P Pulse Ox O2 Delivery O2 Flow Rate FiO2 01/06/17 12:58 98.0 86 20 104/64 96 01/05/17 21:18 21 01/05/17 19:06 Room Air 01/05/17 18:41 15.0 Intake and Output 01/05/17 01/05/17 01/06/17 15:00 23:00 07:00 Intake Total 1171.2 ml 400 ml Output Total 800 ml Balance 1171.2 ml -400 ml Exam General: The patient is well-developed, Not in acute distress. HEENT: Atraumatic, normocephalic. The pupils are equal and round . Neck: Supple with full range of motion. Chest: Normal expansion of the thorax during inspiration Lungs: Clear to auscultation bilaterally Heart: Normal S1-S2, Regular rhythm and rate. Abdomen: Soft , nontender, nondistended , bowel sounds are present. Extremities: Normal to inspection, no edema no cyanosis Neurologic: Normal mental status,The patient is awake, alert and oriented . Results Result Diagram: 01/06/17 0556 01/06/17 0556 Results 24 hrs Laboratory Tests Test 01/05/17 16:47 01/05/17 20:40 01/06/17 05:56 Hemoglobin 7.6 L 7.1 L 6.9 *L Hematocrit 24.9 L 22.9 L 22.6 L White Blood Count 6.0 Red Blood Count 2.42 L Mean Corpuscular Volume 93.4 Mean Corpuscular Hemoglobin 28.5 L Mean Corpuscular Hemoglobin Concent 30.5 L Red Cell Distribution Width 15.9 H Platelet Count 424 H Mean Platelet Volume 8.7 Neutrophils % 38.4 L Segmented Neutrophils % (Manual) 43 Band Neutrophils % (Manual) 1 Lymphocytes % 40.8 Lymphocytes % (Manual) 40 Monocytes % 13.2 H Monocytes % (Manual) 7 Eosinophils % 7.0 Eosinophils % (Manual) 7 Basophils % 0.3 Basophils % (Manual) 2 Nucleated Red Blood Cells % 0.0 Neutrophils # 2.3 Neutrophils # (Manual) 2.6 Band Neutrophils # 0.0 Absolute Lymphocytes (Manual) 2.4 Lymphocytes # 2.4 Monocytes # 0.8 Absolute Monocytes (Manual) 0.4 Eosinophils # 0.4 Basophils # 0.0 Basophils # (Manual) 0.1 H Nucleated Red Blood Cells # 0.0 Pathologist Review (Hematology) YES Platelet Estimate NORMAL Polychromasia 3+ Hypochromasia 3+ Anisocytosis 1+ Microcytosis 1+ Sodium Level 137 Potassium Level 4.0 Chloride Level 110 Carbon Dioxide Level 24 Anion Gap 7 L Blood Urea Nitrogen 11 Creatinine 0.69 Glucose Level 88 Calcium Level 8.4 Magnesium Level 2.0 Free Thyroxine 0.81 Free Triiodothyronine (T3) pg/mL 4.10 Medications Medications Current Medications Lorazepam (Ativan) 0.5 mg Q6H PRN IV ANXIETY Last administered on 01/06/17 09: 46; Admin Dose 0.5 MG; Start 01/04/17 at 09:00 Ondansetron HCl (Zofran Inj) 4 mg Q6H PRN IV NAUSEA AND/OR VOMITING Last administered on 01/04/17 23:49; Admin Dose 4 MG; Start 01/04/17 at 09:00 Acetaminophen/ Hydrocodone Bitart ([place] (5/325)) 1 tab Q6H PRN PO PAIN LEVEL 4 -6 Last administered on 01/05/17 01:18; Admin Dose 1 TAB; Start 01/04/17 at 09: 00 Acetaminophen/ Hydrocodone Bitart ([place] (5/325)) 2 tab Q6H PRN PO PAIN LEVEL 7 -10 Last administered on 01/06/17 11:29; Admin Dose 2 TAB; Start 01/04/17 at 09 :00 Methadone HCl 5 mg 5 mg BID PO Last administered on 01/06/17 08:28; Admin Dose 5 MG; Start 01/05/17 at 09:00 Multivitamins/ Thiamine HCl/ Folic Acid/Sodium Chloride (Mvi Adult/ Vitamin B1/ Folic Acid/NS) 1,011.2 ml @ 125 mls/ hr DAILY@09 IVPB Last administered on 08:32; Admin Dose 125 MLS/HR; Start 01/05/17 at 09:00 Pramipexole 0.25 mg 0.25 mg BID PO Last administered on 01/06/17 08:28; Admin Dose 0.25 MG; Start 01/05/17 at 09:00 Ferric Sodium Gluconate Complex/ Sodium Chloride (Ferrlecit/NS) 110 ml @ 110 mls/hr Q24H IVPB Last administered on 01/06/17 08:29; Admin Dose 110 MLS/HR; Start 01/05/17 at 08:00; Stop 01/09/17 at 08:59 Guaifenesin/ Codeine Phosphate (Robitussin Ac Liquid Cup) 5 ml Q4H PRN PO COUGH Last administered on 01/06/17 09:18; Admin Dose 5 ML; Start 01/05/17 at 12:30 Ferrous Sulfate (Ferrous Sulfate (Ec)) 325 mg BID PO Last administered on 08:28; Admin Dose 325 MG; Start 01/05/17 at 21:00 Ascorbic Acid (Vitamin C) 250 mg BID PO Last administered on 01/06/17 08:29; Admin Dose 250 MG; Start 01/05/17 at 21:00 Pantoprazole (Protonix Tab) 40 mg BID@06,18 PO Last administered on 01/06/17 06:34; Admin Dose 40 MG; Start 01/06/17 at 06:00 LILLIE STEINBERG MD Jan 06, 2017 14:10
[2017-01-06 17:52] LABS: HEMATOCRIT 26.8 % (37.0-47.0); HEMOGLOBIN 8.4 g/dl (12.0-16.0)
[2017-01-06 19:11] VITALS: BP 134/73; RESP 20
[2017-01-06] MEDS: ALBUTEROL/IPRATROPIUM (NEB) 3 ML AMP HHN PRN (20:48)
--- NOTE | 2017-01-06 20:59 | CONS ---
DATE OF ADMISSION: 01/04/2017 DATE OF CONSULTATION: 01/06/2017 CHIEF COMPLAINT: Right shoulder pain. HISTORY OF PRESENT ILLNESS: This is a 61-year-old female, who had a fall approximately 1 month ago. She has had continued right shoulder pain over the last month. She denies any numbness or tingling. She is currently admitted for upper GI bleed. She has a history of alcohol abuse. She has no other complaints. PAST MEDICAL HISTORY: Alcoholism, chronic pain syndrome, chronic opioid usage, hepatomegaly. MEDICATION: Please see chart. PAST SURGICAL HISTORY: RAJEEV. SOCIAL HISTORY: Patient admits to current alcohol use and prescription opiate abuse. Denies tobacco use. FAMILY HISTORY: Noncontributory. ALLERGIES: NO KNOWN DRUG ALLERGIES. PHYSICAL EXAMINATION: GENERAL APPEARANCE: Patient is comfortable, resting in bed. EXTREMITIES: Right shoulder: There is a deformity of the right shoulder. She is tender to palpation over the anterior shoulder. She is unable to perform range of motion due to pain. She is neurovascular intact, with 5/5 function of her axillary, radial, ulnar and median nerves. LABORATORY: X-rays, right shoulder, 2 views of the right shoulder demonstrate a chronic anterior shoulder dislocation, with a Hill-Sachs lesion. There are degenerative changes of the AC joint. IMPRESSION: A 61-year-old female with history of alcoholism, who sustained a fall over 1 month ago, with a chronic closed right anterior shoulder dislocation. PLAN: I discussed treatment options with the patient. No surgical intervention is required at this hospital visit. Patient can be discharged from Orthopedic standpoint, with followup with an Orthopedic shoulder surgeon on outpatient basis. She can have a sling for comfort. Dictated By: Viky Mcmahon MD /[email or web address] /Document#: [id number]
[2017-01-06] MEDS: CHLORDIAZEPOXIDE 25 MG CAP PO SCH (21:01)
[2017-01-07] MEDS: LORAZEPAM 2 MG INJ IV PRN ×2 (00:11→14:09)
[2017-01-07] MEDS: HYDROCODONE/APAP (5/325) TAB PO PRN ×2 (01:51→10:53)
[2017-01-07 01:59] VITALS: BP 118/66; RESP 20
[2017-01-07] MEDS: PANTOPRAZOLE (EC) 40 MG TAB PO SCH ×2 (05:57→17:26)
[2017-01-07] MEDS ORDERED: LEVOTHYROXINE 25 MCG TAB PO SCH (06:00)
[2017-01-07 06:23] LABS: BASOPHILS % 0.4 % (0.0-2.0); EOSINOPHILS # 0.6 10^3/ul (0.0-0.5); EOSINOPHILS % 8.3 % (0.0-7.0); HEMATOCRIT 24.7 % (37.0-47.0); HEMOGLOBIN 7.8 g/dl (12.0-16.0); LYMPHOCYTES # 2.6 10^3/ul (0.8-2.9); LYMPHOCYTES % 35.8 % (15.0-51.0); MEAN CORPUSCULAR HEMOGLOBIN 29.3 pg (29.0-33.0); MEAN CORPUSCULAR HGB CONC 31.6 g/dl (32.0-37.0); MEAN CORPUSCULAR VOLUME 92.9 fl (82.0-101.0); MEAN PLATELET VOLUME 8.7 fl (7.4-10.4); NEUTROPHIL # 3.1 10^3/ul (1.6-7.5); NEUTROPHILS % 42.1 % (39.0-77.0); PLATELET COUNT 404 10^3/UL (140-415); RED BLOOD COUNT 2.66 10^6/ul (4.20-5.40); RED CELL DISTRIBUTION WIDTH 16.1 % (11.5-14.5); WHITE BLOOD COUNT 7.3 10^3/ul (4.8-10.8)
[2017-01-07 06:45] LABS: CALCIUM 8.2 mg/dl (8.4-10.2); CREATININE 0.71 mg/dl (0.44-1.00); MAGNESIUM 1.8 mg/dl (1.7-2.5)
[2017-01-07] MEDS: GUAIFENESIN/CODEINE 5ML CUP PO PRN ×2 (06:45→14:10)
[2017-01-07 07:53] VITALS: BP 143/78; RESP 18
[2017-01-07] MEDS: SOD FERRIC GLUC COMPLX 125 MG in SOD CHLORIDE 0.9% 100 ML IVPB SCH (07:57)
[2017-01-07] MEDS: FERROUS SULFATE (EC) 325 MG TAB PO SCH (08:09)
[2017-01-07] MEDS: PRAMIPEXOLE 0.25 MG TAB PO SCH (08:09)
[2017-01-07] MEDS: ASCORBIC ACID 250 MG TAB PO SCH (08:09)
[2017-01-07] MEDS: CHLORDIAZEPOXIDE 25 MG CAP PO SCH ×2 (08:09→12:50)
[2017-01-07] MEDS: METHADONE 5 MG TAB PO SCH (08:09)
[2017-01-07] MEDS: MULTIVITAMINS 10 ML, THIAMINE 100 MG, FOLIC ACID 1 MG in SOD CHLORIDE 0.9% 1,000 ML IVPB SCH (09:07)
[2017-01-07] MEDS: ONDANSETRON 4 MG INJ IV PRN ×2 (09:08→17:19)
--- NOTE | 2017-01-07 11:54 | PDOCDIS ---
Discharge Instructions CONDITION Patient Condition: Stable HOME CARE INSTRUCTIONS: Special Diet: REGULAR DIET ACTIVITY: Activity Restrictions: Slowly Increase Activity Rest between Activity FOLLOW UP/APPOINTMENTS Follow-up Plan Follow up with GI as out-pt FOllow up with PCP as out-pt LILLIE STEINBERG MD Jan 07, 2017 11:54
[2017-01-07] MEDS ORDERED: FER325 PO (11:57)
[2017-01-07] MEDS ORDERED: PANT40TA4 PO (11:57)
[2017-01-07] MEDS ORDERED: HYDR-3498 PO (11:57)
[2017-01-07] MEDS ORDERED: CHLO25CA9 PO (11:57)
[2017-01-07] MEDS ORDERED: ASCO250T96 PO (11:57)
[2017-01-07] MEDS ORDERED: THIA100T10 PO (11:57)
[2017-01-07] MEDS ORDERED: LEVO25TA53 PO (11:57)
[2017-01-07] MEDS ORDERED: FOLI-49 PO (11:57)
[2017-01-07] MEDS ORDERED: MULT-761 PO (11:57)
--- NOTE | 2017-01-07 15:23 | PN ---
Date/Time of Note Date/Time of Note DATE: 01/07/17 TIME: 15:21 Assessment/Plan VTE Prophylaxis VTE Prophylaxis Intervention: SCD's Lines/Catheters IV [facility] [place] Urinary Cath still in place: No Assessment/Plan Assessment/Plan Assessment: * Distal esophagitis * Moderate-sized hiatal hernia * Multiple antral gastric ulcerations, benign endoscopic appearance, no stigmata * Rule out H. pylori infection. Biopsies obtained Plan: * Protonix 40 mg twice daily * Avoid NSAIDs and alcohol * Advance diet as tolerated * Monitor H&H and transfuse for hemoglobin less than 7.5 * case discussed with Dr Payan * Stable for outpatient management * follow up with Gastroenterology after 6 weeks Subjective 24 Hr Interval Summary Free Text/Dictation * Course reviewed with RN * Patient seen and examined * Patient undergoing blood transfusion Exam/Review of Systems Vital Signs Vitals Vital Signs Date Time Temp Pulse Resp B/P Pulse Ox O2 Delivery O2 Flow Rate FiO2 01/07/17 07:53 98.3 89 18 143/78 99 01/06/17 20:48 21 01/05/17 19:06 Room Air 01/05/17 18:41 15.0 Intake and Output 01/06/17 01/06/17 01/07/17 15:00 23:00 07:00 Intake Total 1390 ml 1161.2 ml Output Total 900 ml 1800 ml Balance 490 ml -638.8 ml Exam Constitutional: alert, oriented Neck: non-tender, supple Respiratory: clear to auscultation, normal air movement Cardiovascular: nl pulses, regular rate and rhythm Gastrointestinal: non-tender, soft Musculoskeletal: nl extremities to inspection, nl gait and stance Neurological: nl mental status Results Result Diagram: 01/07/17 0552 01/07/17 0552 Results 24 hrs Laboratory Tests Test 01/06/17 17:30 01/07/17 05:52 01/07/17 06:42 01/07/17 12:42 Hemoglobin 8.4 #L 7.8 L Hematocrit 26.8 L 24.7 L White Blood Count 7.3 # Red Blood Count 2.66 L Mean Corpuscular Volume 92.9 Mean Corpuscular Hemoglobin 29.3 Mean Corpuscular Hemoglobin Concent 31.6 L Red Cell Distribution Width 16.1 H Platelet Count 404 Mean Platelet Volume 8.7 Neutrophils % 42.1 Lymphocytes % 35.8 Monocytes % 13.0 H Eosinophils % 8.3 H Basophils % 0.4 Nucleated Red Blood Cells % 0.0 Neutrophils # 3.1 Lymphocytes # 2.6 Monocytes # 1.0 H Eosinophils # 0.6 H Basophils # 0.0 Nucleated Red Blood Cells # 0.0 Sodium Level 138 Potassium Level 4.0 Chloride Level 110 Carbon Dioxide Level 24 Anion Gap 8 Blood Urea Nitrogen 9 Creatinine 0.71 Glucose Level 94 Calcium Level 8.2 L Magnesium Level 1.8 Lab Scanned Report BLOOD TRANSFUSION REFERENCE LAB Medications Medications Current Medications Lorazepam (Ativan) 0.5 mg Q6H PRN IV ANXIETY Last administered on 01/07/17 14: 09; Admin Dose 0.5 MG; Start 01/04/17 at 09:00 Ondansetron HCl (Zofran Inj) 4 mg Q6H PRN IV NAUSEA AND/OR VOMITING Last administered on 01/07/17 09:08; Admin Dose 4 MG; Start 01/04/17 at 09:00 Acetaminophen/ Hydrocodone Bitart ([place] (5/325)) 1 tab Q6H PRN PO PAIN LEVEL 4 -6 Last administered on 01/05/17 01:18; Admin Dose 1 TAB; Start 01/04/17 at 09: 00 Acetaminophen/ Hydrocodone Bitart ([place] (5/325)) 2 tab Q6H PRN PO PAIN LEVEL 7 -10 Last administered on 01/07/17 10:53; Admin Dose 2 TAB; Start 01/04/17 at 09 :00 Methadone HCl 5 mg 5 mg BID PO Last administered on 01/07/17 08:09; Admin Dose 5 MG; Start 01/05/17 at 09:00 Multivitamins/ Thiamine HCl/ Folic Acid/Sodium Chloride (Mvi Adult/ Vitamin B1/ Folic Acid/NS) 1,011.2 ml @ 125 mls/ hr DAILY@09 IVPB Last administered on 09:07; Admin Dose 125 MLS/HR; Start 01/05/17 at 09:00 Pramipexole 0.25 mg 0.25 mg BID PO Last administered on 01/07/17 08:09; Admin Dose 0.25 MG; Start 01/05/17 at 09:00 Ferric Sodium Gluconate Complex/ Sodium Chloride (Ferrlecit/NS) 110 ml @ 110 mls/hr Q24H IVPB Last administered on 01/07/17 07:57; Admin Dose 110 MLS/HR; Start 01/05/17 at 08:00; Stop 01/09/17 at 08:59 Guaifenesin/ Codeine Phosphate (Robitussin Ac Liquid Cup) 5 ml Q4H PRN PO COUGH Last administered on 01/07/17 14:10; Admin Dose 5 ML; Start 01/05/17 at 12:30 Ferrous Sulfate (Ferrous Sulfate (Ec)) 325 mg BID PO Last administered on 08:09; Admin Dose 325 MG; Start 01/05/17 at 21:00 Ascorbic Acid (Vitamin C) 250 mg BID PO Last administered on 01/07/17 08:09; Admin Dose 250 MG; Start 01/05/17 at 21:00 Pantoprazole (Protonix Tab) 40 mg BID@06,18 PO Last administered on 01/07/17 05:57; Admin Dose 40 MG; Start 01/06/17 at 06:00 Levothyroxine Sodium (Synthroid) 12.5 mcg DAILY@06 PO Last administered on 01/07 05:57; Admin Dose 12.5 MCG; Start 01/07/17 at 06:00 Chlordiazepoxide (Librium) 25 mg TID PO Last administered on 01/07/17 12:50; Admin Dose 25 MG; Start 01/06/17 at 21:00 SHARITA MYERS NP Jan 07, 2017 15:23
[2017-01-07 19:15] VITALS: BP 141/82; RESP 20
--- NOTE | 2017-01-08 01:46 | DS ---
DATE OF ADMISSION: 01/04/2017 DATE OF DISCHARGE: 01/07/2017 CONSULTANTS: 1. . 2. Dr. Pete aPyan 3. Physical therapy. PROCEDURES: 1. Transfusion of packed red blood cells. 2. Upper endoscopy. FINAL DIAGNOSES: 1. Alcohol intoxication, status post banana bag. Patient will be discharged on Librium, multivitamin, thiamine, and folic acid. 2. Acute on chronic gastrointestinal bleed. Family history of alcoholism versus nonsteroidal antiinflammatory drugs, status post upper endoscopy on 01/05/2017 finding gastric ulcer without active bleeding. Continue PPI. 3. Right shoulder pain secondary to anterior dislocation and subluxation of the right glenohumeral joint, without definite inferior displacement. Orthopedic surgeon was consulted. Follow up with orthopedic surgeon as an outpatient. 4. Chronic pain syndrome on methadone. 5. Anemia secondary to gastrointestinal bleed. Status post transfusion. Discharged on ferrous sulfate. MEDICATIONS: 1. Percocet. 2. Robitussin AC. 3. Ferrous sulfate. 4. Protonix. 5. Levothyroxine. 6. Vitamin C. 7. Thiamine. 8. Folic acid. 9. Multivitamin. 10. Methadone. ALLERGIES: CIPROFLOXACIN. GABAPENTIN. HOSPITAL COURSE: This is a 61-year-old lady with a past medical history of chronic pain syndrome, alcoholism, anemia, history of drug abuse and opiate abuse, on methadone. The patient was brought into the emergency room secondary to yelling and was given Ativan, Benadryl, and Haldol. The patient was found to have alcohol intoxication and was placed on banana bag, Librium, Ativan. The patient was also found to have anemia, hemoglobin was found to be 6.9, hematocrit 22.6, was typed and crossed and transfused 1 unit of packed red blood cells. Gastroenterology was consulted. The patient was taken to GI lab for upper endoscopy and was found to have a gastric ulcer which was no active bleeding. The patient was started on IV PPI at the time of admission. GI bleed is likely secondary to a combination of NSAIDs and patient history of alcoholism. Patient also was found to have right shoulder pain. This is secondary to patient having had a mechanical fall about 3 weeks ago. Orthopedic surgeon was consulted. As per orthopedic surgeon, this is chronic; no surgical intervention at this time and patient should be referred as outpatient to shoulder offender job retention specialist as outpatient. This morning, patient's blood pressure is stable with temperature 98.3, pulse 89, respirations 18, blood pressure 143/78, oxygen 99 percent on room air. The patient will be transfused 1 unit packed red blood cells. Patient has been continued on iron infusion during this course of hospitalization. The labs are normal, with sodium 138, potassium 4.3, chloride 110, bicarb 24, BUN 9, creatinine 0.71, glucose 94, magnesium 1.8. WBC 7.3, hemoglobin 7.8, hematocrit 24.7, platelets are 404,000. DISCHARGE CONDITION: Stable. DISPOSITION: Patient will be discharged home after evaluation with gastroenterology and clearance from gastroenterology standpoint. FOLLOWUP: 1. Patient needs to follow up with cafeteria table attendant as outpatient for possible colonoscopy. 2. Patient is to follow with orthopedic surgeon as an outpatient. 3. Patient is to follow up with primary care physician as outpatient. This was discussed with the patient in detail prior to discharge. Dictated By: Jason Melgar MD /[email or web address] /Document#: [id number]
== END 2017-01-07 19:40 | disposition home or self-care (01) | DRG 378 ==
LOC: FTE 03:20 → MS2 07:14 → UNDOADMIN 07:15
PROVIDERS: ADMIT Internal Medicine; ATTEND Internal Medicine
PROC: 0DB78ZX Excision of Stomach, Pylorus, Via Natural or Artificial Opening Endoscopic, Diagnostic (ICD-10-PCS; principal; 2017-01-05 19:30)
PROC: 30233N1 Transfusion of Nonautologous Red Blood Cells into Peripheral Vein, Percutaneous Approach (ICD-10-PCS; 2017-01-06)
DX: K25.0 Acute gastric ulcer with hemorrhage (principal); F11.20 Opioid dependence, uncomplicated; F10.121 Alcohol abuse with intoxication delirium; D62 Acute posthemorrhagic anemia; K20.9 Esophagitis, unspecified; K92.0 Hematemesis; Y90.4 Blood alcohol level of 80-99 mg/100 ml; K44.9 Diaphragmatic hernia without obstruction or gangrene; G89.4 Chronic pain syndrome; M24.411 Recurrent dislocation, right shoulder; D50.9 Iron deficiency anemia, unspecified
CPT/HCPCS: 36415; 36430; 71010; 74000; 74176; 80048; 80053; 80306; 80307; 81001; 82270; 82728; 83540; 83690; 83735; 84439; 84443; 84481; 85014; 85018; 85025; 86592; 86850; 86900; 86901; 86920; 87040; 87086; 88305; 88312; 93005; 94640; 94664; 96361; 96372; 96374; 96375; 96376; J1200; J1630; J2060; J2405; J2765; J2916; J3411; J3475; J7030; P9016

== ENCOUNTER 2017-01-08 23:45 | Emergency (ER) | payer MEDICAID ==
[~2017-01-08] VITALS: Ht 162.6 cm; Wt 75.0 kg
[~2017-01-08 23:45] MED LIST changes: -ACET500C5 PO; +ASCO250T96 PO; +CHLO25CA9 PO; +FER325 PO; +FOLI-49 PO; +HYDR-3498 PO; -HYDR-906 PO; +LEVO25TA53 PO; +MULT-761 PO; +PANT40TA4 PO; +PRAM0.2539 PO; +THIA100T10 PO
[2017-01-08 23:50] VITALS: Ht 162.6 cm; Wt 75.0 kg
--- NOTE | 2017-01-09 00:26 | ERA ---
ER Documentation Chief Complaint Date/Time DATE: 01/09/17 TIME: 00:24 Chief Complaint c/o abd pain with n/v. Dc'd yesterday for UGIB. HPI The patient is a 61-year-old female, presenting to the ER because of recurrent abdominal pain. She was discharged yesterday with Percocet. She has chronic pain syndrome and has been on methadone for the last 8 years. She is unable to obtain methadone nor the Percocet, the abdominal pain is diffuse, has similar symptoms previously. She was admitted for acute hematemesis and had an EGD on January 05, 2017 that showed gastric ulcer, esophagitis and hiatal hernia. She did have 1 unit of blood transfusion. She denies fever, chills, neck pain, chest pain, dyspnea. She has history of opioid abuse. She does drink Past medical history: History of TIA, asthma, chronic pain syndrome, anemia, hypothyroidism, chronic right shoulder pain Past surgical history: Hysterectomy ROS All systems reviewed and are negative except as per history of present illness. Medications Home Meds Active Scripts Multivitamin (MULTI VITAMIN DAILY) 1 Each Tablet, 1 TAB PO DAILY, #30 TAB Prov:LILLIE STEINBERG MD 01/07/17 Folic Acid* (Folic Acid*) 1 Mg Tablet, 1 MG PO DAILY, #30 TAB Prov:LILLIE STEINBERG MD 01/07/17 Thiamine* (Thiamine*) 100 Mg Tablet, 100 MG PO DAILY, #30 TAB Prov:LILLIE STEINBERG MD 01/07/17 Ascorbic Acid (Vitamin C) 250 Mg Tab, 250 MG PO BID, #60 TAB Prov:LILLIE STEINBERG MD 01/07/17 Levothyroxine Sodium* (Levothyroxine Sodium*) 25 Mcg Tablet, 12.5 MCG PO DAILY@ 06, #30 TAB Prov:LILLIE STEINBERG MD 01/07/17 Pantoprazole* (Pantoprazole*) 40 Mg Tablet.dr, 40 MG PO BID@,18, #60 1 Refill Prov:LILLIE STEINBERG MD 01/07/17 Hydrocodone Bit-Acetaminophen (Hydrocodone Bit-APAP) 5-325MG Tablet, 1 TAB PO Q6H Y for PAIN LEVEL 4-6, #1 TAB Prov:LILLIE STEINBERG MD 01/07/17 Chlordiazepoxide* (Chlordiazepoxide*) 25 Mg Capsule, 25 MG PO TID, #12 CAP Prov:LILLIE STEINBERG MD 01/07/17 Ferrous Sulfate* (Ferrous Sulfate*) 325 Mg Tabec, 325 MG PO BID, #60 TAB 2 Refills Prov:LILLIE STEINBERG MD 01/07/17 Reported Medications Pramipexole* (Mirapex*) 0.25 Mg Tablet, 0.25 MG PO BID, TAB 01/05/17 Allergies Allergies: Coded Allergies: ciprofloxacin (Unverified Allergy, Severe, EYES SWELLING; ITCHING, 12/11/16 ) gabapentin (Unverified Allergy, Unknown, STROKE LIKE, 12/11/16) PMhx/Soc History of Surgery: Yes (Hysterectomy) Hx Neurological Disorder: Yes (Posthepatic Neuralgia, TIA 2016) Hx Respiratory Disorders: Yes (Asthma) Hx Cardiac Disorders: Yes (Cardiac Murmur) Hx Psychiatric Problems: Yes Hx Miscellaneous Medical Probl: Yes (Chronic pain syndrome, Chronic opiod usage ) Hx Alcohol Use: Yes (ETOH Abuse) Hx Substance Use: Yes (Opioid Abuse) Hx Tobacco Use: No Physical Exam Vitals Vital Signs Date Time Temp Pulse Resp B/P Pulse Ox O2 Delivery O2 Flow Rate FiO2 01/09/17 00:39 97.7 82 18 145/68 96 Room Air 01/08/17 23:50 97.7 85 18 195/105 94 Physical Exam Const: No acute distress. Head: Atraumatic. Eyes: Normal Conjunctiva. ENT: Normal External Ears, Nose and Mouth. Neck: Full range of motion. No meningismus. Resp: Clear to auscultation bilaterally. Cardio: Regular rate and rhythm. Abd: Soft, non distended, normal bowel sounds,mild and vague diffuse abdominal tenderness, no rigidity, rebound or CVA tenderness Skin: No petechiae or rashes. Back: No midline or flank tenderness. Ext: No cyanosis, or edema. Neur: Awake and alert. No focal deficit Psych: Normal Mood and Affect. Result Diagram: 01/09/17 0123 01/09/17 0123 Results 24 hrs Laboratory Tests Test 01/09/17 00:45 01/09/17 01:18 01/09/17 01:23 Urine Opiates Screen Positive Urine Barbiturates Negative Urine Amphetamines Screen Negative Urine Benzodiazepines Screen Positive Urine Cocaine Screen Negative Urine Cannabinoids Negative Bedside Urine pH (LAB) 6.0 Bedside Urine Protein (LAB) Negative Bedside Urine Glucose (UA) Negative Bedside Urine Ketones (LAB) Negative Bedside Urine Blood Negative Bedside Urine Nitrite (LAB) Negative Bedside Urine Leukocyte Esterase (L Negative White Blood Count 6.910^3/ul Red Blood Count 3.2910^6/ul Hemoglobin 9.5g/dl Hematocrit 30.2% Mean Corpuscular Volume 91.8fl Mean Corpuscular Hemoglobin 28.9pg Mean Corpuscular Hemoglobin Concent 31.5g/dl Red Cell Distribution Width 16.9% Platelet Count 44428^3/UL Mean Platelet Volume 8.8fl Neutrophils % 60.1% Lymphocytes % 24.3% Monocytes % 11.0% Eosinophils % 3.8% Basophils % 0.4% Nucleated Red Blood Cells % 0.0/100WBC Neutrophils # 4.110^3/ul Lymphocytes # 1.710^3/ul Monocytes # 0.810^3/ul Eosinophils # 0.310^3/ul Basophils # 0.010^3/ul Nucleated Red Blood Cells # 0.010^3/ul Sodium Level 136mmol/L Potassium Level 4.0mmol/L Chloride Level 108mmol/L Carbon Dioxide Level 23mmol/L Anion Gap 9 Blood Urea Nitrogen 13mg/dl Creatinine 0.55mg/dl Glucose Level 91mg/dl Calcium Level 9.3mg/dl Total Bilirubin 0.1mg/dl Direct Bilirubin 0.00mg/dl Indirect Bilirubin 0.1mg/dl Aspartate Amino Transf (AST/SGOT) 24IU/L Alanine Aminotransferase (ALT/SGPT) 23IU/L Alkaline Phosphatase 76IU/L Total Protein 6.1g/dl Albumin 3.4g/dl Globulin 2.70g/dl Albumin/Globulin Ratio 1.25 Lipase 77U/L Ethyl Alcohol Level < 10.0mg/dl Current Medications Medications (Trade) Dose Ordered Sig/Jamshid Route PRN Reason Start Time Stop Time Status Last Admin Dose Admin Hydromorphone HCl (Dilaudid) 1 mg ONCE STAT IV 01/09/17 00:38 01/09/17 00:40 DC 01/09/17 01:49 Ondansetron HCl (Zofran Inj) 4 mg ONCE STAT IV 01/09/17 00:38 01/09/17 00:40 DC 01/09/17 01:49 Hydromorphone HCl (Dilaudid) 1 mg ONCE STAT IV 01/09/17 02:11 01/09/17 02:12 DC 01/09/17 02:18 Procedures/MDM [place] [id number] [place] [address] Radiology Main Line: [phone] DIAGNOSTIC IMAGING REPORT Patient: GONZALEZ SANDRA : 1955 Age: 61 Sex: F MR #: [id number] DOS: 01/09/17 0039 Ordering MD: RAMYA العلي MD Location: E/R Room/Bed: PROCEDURE: CT of the abdomen and pelvis without contrast CLINICAL INDICATION: Abdominal pain. TECHNIQUE: Spiral CT images through the abdomen and pelvis without the use of oral and without the use of intravenous contrast. The administered radiation dose is CTDI 13.91 and DLP 826.98. One or more of the following dose reduction techniques were used: automated exposure control, adjustment of the mA and/or kV according to patient size, or use of iterative reconstruction technique. COMPARISON: 01/04/2017 FINDINGS: The study is limited by lack of intravenous contrast. Lower thorax: Stable tiny right middle lobe lung nodule. No pleural or pericardial effusion.. Liver: Elongated liver with probable prominent Elizabeth's lobe, 19.1 cm, essentially stable. Biliary: The gallbladder is unremarkable.. No biliary ductal dilatation is seen. Pancreas: Unremarkable. No focal mass or inflammatory process. Spleen: The spleen is unremarkable in appearance Adrenal glands: Unremarkable in appearance. No focal nodule.. Genitourinary: No hydronephrosis or renal calculi are seen.. The bladder is unremarkable in appearance.. Gastrointestinal Tract: There is no evidence for bowel obstruction, free air, or abscess. The appendix is not deftly identified. No definite pericecal inflammatory process.. Moderate hiatal hernia. Tiny fat-containing umbilical hernia. Colonic diverticulosis without evidence of diverticulitis. Lymph nodes: No visible pathologic lymphadenopathy.. Vascular structures: Mild atherosclerotic change of the aorta and coronary arteries.. Peritoneal cavity: Unremarkable mesentery and peritoneum.. No mass, edema, or ascites. Reproductive Organs: Surgically absent.. Musculoskeletal: There is mild degenerative change of the spine. Injection granulomas in the gluteal regions. IMPRESSION: No definite acute abnormality of the abdomen or pelvis. Diverticulosis without evidence of diverticulitis. RPTAT: [facility] Emelia Cho Physician Date Time Electronically viewed and signed by Emelia Cho Physician on 01/09/2017 02 :11 LE/ CC: RAMYA العلي MD MEDICAL MAKING DECISION: The patient is a 51-year-old female, presenting with recurrent abdominal pain most likely due to opioid withdrawal since he has not been able to take her methadone or Percocet. She was treated with Dilaudid 1 mg IV 2 for chronic abdominal pain and Zofran 4 mg IV, 1 for now sent with good response. The differential diagnoses considered include but are not limited to cholelithiasis, cholecystitis, cystitis, pancreatitis, hepatitis, gastritis, peptic ulcer disease, gastric ulcer, appendicitis, diverticulitis, cholangitis, choledocholithiasis, partial small bowel obstruction. Departure Diagnosis: Primary Impression: Abdominal pain Additional Impressions: Chronic pain Anemia Condition: Good Comments I discussed the findings with the patient. I advised the patient to follow-up with the primary physician in about 1-2 days, sooner if needed and return if any concern. The patient's blood pressure was elevated (>120/80) but appears stable without evidence of hypertension emergency or urgency. The patient was counseled about the risks of hypertension and urged to pursue outpatient monitoring and therapy within a week with their primary care physician. RAMYA العلي MD Jan 09, 2017 00:26
[2017-01-09] MEDS ORDERED: HYDROmorphONE 1 MG/ML SYG IV STA ×2 (00:38→02:11)
[2017-01-09] MEDS ORDERED: ONDANSETRON 4 MG INJ IV STA (00:38)
[2017-01-09 00:39] VITALS: BP 145/68; PULSE 82; RESP 18; TEMP 97.7
[2017-01-09 01:12] LABS: URINE BLOOD (Dip) POC Negative (NEGATIVE)
[2017-01-09 01:38] LABS: BASOPHILS % 0.4 % (0.0-2.0); EOSINOPHILS # 0.3 10^3/ul (0.0-0.5); EOSINOPHILS % 3.8 % (0.0-7.0); HEMATOCRIT 30.2 % (37.0-47.0); HEMOGLOBIN 9.5 g/dl (12.0-16.0); LYMPHOCYTES # 1.7 10^3/ul (0.8-2.9); LYMPHOCYTES % 24.3 % (15.0-51.0); MEAN CORPUSCULAR HEMOGLOBIN 28.9 pg (29.0-33.0); MEAN CORPUSCULAR HGB CONC 31.5 g/dl (32.0-37.0); MEAN CORPUSCULAR VOLUME 91.8 fl (82.0-101.0); MEAN PLATELET VOLUME 8.8 fl (7.4-10.4); MONOCYTE # 0.8 10^3/ul (0.3-0.9); NEUTROPHIL # 4.1 10^3/ul (1.6-7.5); NEUTROPHILS % 60.1 % (39.0-77.0); PLATELET COUNT 365 10^3/UL (140-415); RED BLOOD COUNT 3.29 10^6/ul (4.20-5.40); RED CELL DISTRIBUTION WIDTH 16.9 % (11.5-14.5); WHITE BLOOD COUNT 6.9 10^3/ul (4.8-10.8)
[2017-01-09 02:00] LABS: OPIATES Positive (NEGATIVE)
[2017-01-09 02:09] LABS: BENZODIAZEPINES Positive (NEGATIVE); CANNABINOIDS Negative (NEGATIVE); COCAINE Negative (NEGATIVE)
--- NOTE | 2017-01-09 02:12 | RADRPT ---
PROCEDURE: CT of the abdomen and pelvis without contrast CLINICAL INDICATION: Abdominal pain. TECHNIQUE: Spiral CT images through the abdomen and pelvis without the use of oral and without the use of intravenous contrast. The administered radiation dose is CTDI 13.91 and DLP 826.98. One or more of the following dose reduction techniques were used: automated exposure control, adjustment of the mA and/or kV according to patient size, or use of iterative reconstruction technique. COMPARISON: 01/04/2017 FINDINGS: The study is limited by lack of intravenous contrast. Lower thorax: Stable tiny right middle lobe lung nodule. No pleural or pericardial effusion.. Liver: Elongated liver with probable prominent Elizabeth's lobe, 19.1 cm, essentially stable. Biliary: The gallbladder is unremarkable.. No biliary ductal dilatation is seen. Pancreas: Unremarkable. No focal mass or inflammatory process. Spleen: The spleen is unremarkable in appearance Adrenal glands: Unremarkable in appearance. No focal nodule.. Genitourinary: No hydronephrosis or renal calculi are seen.. The bladder is unremarkable in appearan ce.. Gastrointestinal Tract: There is no evidence for bowel obstruction, free air, or abscess. The appen roro is not deftly identified. No definite pericecal inflammatory process.. Moderate hiatal hernia. Tiny fat-containing umbilical hernia. Colonic diverticulosis without evidence of diverticulitis. Lymph nodes: No visible pathologic lymphadenopathy.. Vascular structures: Mild atherosclerotic change of the aorta and coronary arteries.. Peritoneal cavity: Unremarkable mesentery and peritoneum.. No mass, edema, or ascites. Reproductive Organs: Surgically absent.. Musculoskeletal: There is mild degenerative change of the spine. Injection granulomas in the gluteal regions. IMPRESSION: No definite acute abnormality of the abdomen or pelvis. Diverticulosis without evidence of divertic ulitis. RPTAT: [facility] Physician Jorge Date Time Electronically viewed and signed by Physician Jorge on 01/09/2017 02:11 PIPPA/
[2017-01-09 02:17] LABS: ALANINE AMINOTRANSFERASE 23 IU/L (13-69); ALBUMIN 3.4 g/dl (3.3-4.9); ALBUMIN/GLOBULIN RATIO 1.25; ALKALINE PHOSPHATASE 76 IU/L (42-121); ANION GAP 9 (8-16); ASPARTATE AMINO TRANSFERASE 24 IU/L (15-46); BILIRUBIN,INDIRECT 0.1 mg/dl (0-1.1); BILIRUBIN,TOTAL 0.1 mg/dl (0.2-1.3); BLOOD UREA NITROGEN 13 mg/dl (7-20); CALCIUM 9.3 mg/dl (8.4-10.2); CARBON DIOXIDE 23 mmol/L (21-31); CHLORIDE 108 mmol/L (97-110); CREATININE 0.55 mg/dl (0.44-1.00); GLUCOSE 91 mg/dl (70-220); SODIUM 136 mmol/L (135-144); TOTAL PROTEIN 6.1 g/dl (6.1-8.1)
[2017-01-09 02:30] LABS: ETHANOL < 10.0 mg/dl
[2017-01-09 02:30] LABS: BARBITURATES Negative (NEGATIVE)
== END 2017-01-09 03:20 | disposition home or self-care (01) ==
LOC: E/R 23:45
DX: R10.84 Generalized abdominal pain (principal); D64.9 Anemia, unspecified; J45.909 Unspecified asthma, uncomplicated; E03.9 Hypothyroidism, unspecified
CPT/HCPCS: 36415; 74176; 80053; 80306; 80307; 81003; 83690; 85025; 96374; 96375; J1170; J2405; Z7502

== ENCOUNTER 2017-01-09 18:46 | Emergency (ER) | payer SELFPAY ==
[~2017-01-09] VITALS: Ht 165.1 cm; Wt 73.0 kg
[2017-01-09 19:31] VITALS: Ht 165.1 cm; Wt 73.0 kg
== END 2017-01-09 21:22 | disposition left against medical advice (07) ==
LOC: FTE 18:46 → E/R 21:22
DX: Z53.21 Procedure and treatment not carried out due to patient leaving prior to being seen by health care provider (principal)

== ENCOUNTER 2017-10-05 14:47 | Inpatient (IN) | END 2017-10-08 13:11 | disposition home or self-care (01) | DRG 391 ==